=== PATIENT | male | born 1955 ===

== ENCOUNTER → 2023-08-16 09:36 | Outpatient (BNVA) | payer MEDICARE, SELFPAY | PROVIDERS: PCP Family Medicine; Referring Provider Family Medicine; Visit Provider Physician Assistant Surgical | DX: J98.6 Disorders of diaphragm (principal); J98.4 Other disorders of lung; J96.91 Respiratory failure, unspecified with hypoxia | CPT/HCPCS: 94618; 99205 ==

== ENCOUNTER 2023-08-23 05:02 | Outpatient (CLI) | payer MEDICARE, SELFPAY ==
[2023-08-23] MEDS: Levalbuterol HFA 15 GM INH 4 PUFF IH (09:32)
[2023-08-23] MEDS: Inhaler, Assist Device 1 EACH MC (09:32)
--- NOTE | 2023-08-23 12:51 | W.PFT ---
Date of service: 08/23/23 Time of Service: 08:03 Pulmonary Function Test Result Indications: Diaphragm paralysis Interpretation Spirometry: There is no airflow limitation. There is no bronchodilator response. Lung Volumes: There is moderate to severe restrictive lung disease. Diffusion Capacity: Unable to perform DLCO due to technical problems Airway Pressure: Normal airways resistance Impression There is moderate to severe restrictive lung disease. Patient unable to perform DLCO due to technical errors. Recommend retesting. Clinical Correlation therefore is recommended.
== END 2023-08-23 05:03 | disposition home or self-care (01) ==
LOC: RT 05:02
PROVIDERS: PCP Family Medicine; Visit Provider Physician Assistant Surgical
DX: J98.6 Disorders of diaphragm (principal); J98.4 Other disorders of lung
CPT/HCPCS: 94060; 94726

== ENCOUNTER 2023-08-25 02:21 | Outpatient (CLI) | payer MEDICARE, SELFPAY ==
--- NOTE | 2023-08-26 09:29 | W.PFT ---
Date of service: 08/25/23 Time of Service: 11:31 Pulmonary Function Test Result Indications: DLCO unable to be performed previously Interpretation Diffusion Capacity: The diffusion is reduced Impression Decreased diffusion. Clinical Correlation therefore is recommended.
== END 2023-08-25 02:22 | disposition home or self-care (01) ==
LOC: RT 02:21
PROVIDERS: PCP Family Medicine; Visit Provider Physician Assistant Surgical
DX: J98.6 Disorders of diaphragm (principal)
CPT/HCPCS: 94729

== ENCOUNTER 2023-09-26 11:12 | Outpatient (REF) | payer MEDICARE, SELFPAY ==
[2023-09-26 17:56] LABS: ALT 42 U/L (16-63); AST 28 U/L (15-37); Albumin 3.8 g/dL (3.4-5.0); Alkaline Phosphatase 124 U/L (46-116); Anion Gap 9.3 mmol/L (3-11); BUN 13 mg/dL (7-18); Bilirubin, Total 0.5 mg/dL (0.2-1.0); CO2 30.7 mmol/L (21.0-32.0); CREATININE 1.1 mg/dL (0.70-1.30); Calcium 9.5 mg/dL (8.5-10.1); Calculated LDL 119 mg/dL (<100); Chloride 102 mmol/L (98-107); Cholesterol 208 mg/dL (<200); Glucose 75 mg/dL (74-106); HDL Cholesterol 37 mg/dL (40-60); Potassium 4.7 mmol/L (3.5-5.1); Sodium 142 mmol/L (136-145); Total Protein 7.1 g/dL (6.4-8.2); Triglyceride 264 mg/dL (<150)
[2023-09-26 22:46] LABS: PSA, Screening 0.5 ng/mL (<=4.5)
== END 2023-09-26 11:13 | disposition home or self-care (01) ==
LOC: NCHCN 11:12
PROVIDERS: PCP Family Medicine; Visit Provider Family Medicine
DX: Z12.5 Encounter for screening for malignant neoplasm of prostate (principal); L28.2 Other prurigo; Z13.220 Encounter for screening for lipoid disorders
CPT/HCPCS: 80053; 80061; 84153

== ENCOUNTER → 2023-11-14 13:44 | Outpatient (BNVA) | payer MEDICARE, SELFPAY | PROVIDERS: PCP Family Medicine; Referring Provider Family Medicine; Visit Provider Student in an Organized Health Care Education/Training Program | DX: J96.91 Respiratory failure, unspecified with hypoxia (principal); J98.6 Disorders of diaphragm; J98.4 Other disorders of lung | CPT/HCPCS: 76604; 99214 ==

== ENCOUNTER → 2023-11-23 02:30 | Outpatient (CLI) | payer MEDICARE, SELFPAY ==
--- NOTE | 2023-11-23 07:45 | DI.RAD_ITS ---
Exam(s) XR CHEST 2V PA LATERAL EXAM: XR CHEST 2V PA LATERAL CLINICAL HISTORY: prior diaphragm paralysis,RESTRICTIVE LUNG DISEASE,J98.4,J98.6 TECHNIQUE: 2D digital imaging was performed. Two views. COMPARISON: No exams were available for comparison FINDINGS: The exam is limited by poor pulmonary inflation HEART: Normal size. Aorta: Not dilated. PULMONARY VASCULATURE: Normal. LUNGS: Bilateral atelectasis versus scarring above the diaphragm. No area consolidation. PLEURAL SPACE: No pleural effusion or pneumothorax. BONE:Unremarkable for age. Soft tissues: Unremarkable. IMPRESSION: Low lung volumes. Basilar atelectasis. DATA REPOSITORY: RADIATION DOSE DELIVERED:
== END ==
PROVIDERS: PCP Family Medicine; Visit Provider Student in an Organized Health Care Education/Training Program
DX: J98.4 Other disorders of lung (principal)
CPT/HCPCS: 71046

== ENCOUNTER → 2023-12-13 00:23 | Outpatient (CLI) | payer MEDICARE, SELFPAY ==
--- NOTE | 2023-12-13 07:00 | DI.US_ITS ---
APPROVED REPORT EXAM: Comprehensive 2D, Doppler, and color-flow Echocardiogram Patient Location: Out-Patient [employer] Operator: Salina Hargrove RT (R) (CT) RDCS Rhythm: NSR Indications: Dyspnea, decreased DLCO, question pulmonary hypertension. Other Information Study Quality: Adequate Conclusion Normal left ventricular wall thickness and chamber size. EF is 65%. Wall motion is normal Normal right ventricular size and function Both atria are normal in size Aortic valve is trileaflet and very mildly sclerotic. There is no hemodynamically significant aortic stenosis. Mean gradient is 8 mmHg. There is no aortic regurgitation Right ventricular systolic pressure could not be estimated due to inadequate tricuspid regurgitation jet Wall motion Left Ventricle The left ventricle is normal size. The left ventricular systolic function is normal. The left ventric ular ejection fraction is within the normal range. Mild concentric left ventricular hypertrophy. Ther e is normal LV segmental wall motion. The left ventricular diastolic function is normal. There is no ventricular septal defect visualized. LVEF is 65%. Right Ventricle The right ventricle is normal size. The right ventricular systolic function is normal. There is faye l right ventricular wall thickness. Moderator band is seen in the right ventricle. Atria The left atrium size is normal. The right atrium size is normal. The interatrial septum is intact wit h no evidence for an atrial septal defect. Aortic Valve Aortic valve is trileaflet. Aortic valve leaflets are mildly thickened. Mean gradient is 8 mmHg No ao rtic regurgitation is present. Mitral Valve The mitral valve leaflets are normal. There is annular calcification. No evidence of mitral valve geraldine nosis. There is no mitral valve regurgitation noted. Tricuspid Valve The tricuspid valve is normal in structure. There is no tricuspid valve stenosis. Trace tricuspid reg urgitation. Unable to assess PA pressure due to inadequate TR jet. Pulmonic Valve The pulmonary valve is normal in structure. There is no pulmonic valvular stenosis. Trace pulmonic re gurgitation. Great Vessels The aortic root is normal in size. The pulmonary artery is normal. Ascending aorta is normal in calib er. Aortic arch is mildly dilated. The IVC is normal in size. The IVC collapses <50% with inspiration . Pericardium There is no pericardial effusion. There is no pleural effusion. 2D Dimensions IVSD d PLAX 1.23 cm M: 0.6-1.2 Ao Root d 3.08 cm M: 3.1 - 3.7 LVPW d PLAX 0.91 cm M: 0.6 - 1.2 Ao Asc Diam d 3.33 cm M: 2.6 - 3.4 LVID d PLAX 4.72 cm M: 4.2 - 5.8 Prox Ao Arch 3.4 cm LVDs 2.20 cm M: 2.5 - 4.0 IVC Diam exp d SLAX 1.6 cm LV EF Teichholz 84.3 % FS 53.34 % LV EDV (Teich) 103.6 mL LV ESV (Teich) 16.3 mL M-Mode TAPSE 2.12 cm (M/F) >1.7 Auto EF LV EDV A4C 92.3 mL LV EDV A2C 80.9 mL LV EDV BP 87.8 mL LV ESV A4C 41.2 mL LV ESV A2C 28.5 mL LV ESV BP 34.9 mL LVEF(%) A4C 55.3 % LVEF(%) A2C 64.8 % LVEF(%) BP 60.2 % LV SV A4C 51.1 ml LV SV A2C 52.4 ml LV SV BP 52.9 ml LV CO A4C 4.0 L/min LV CO A2C 4.3 L/min LV CO BP 4.1 L/min HR A4C 78.09 BPM HR A2C 82.01 BPM LV EDV Index (BP) LV Strain Long Pk Overal Avg (s) 19.33 RV Strain Global Peak Long. Strain A4C 21.98 Global Peak Long. Strain A4C FW 26.69 LA Volume LA Length A4C 4.4 cm LA Length A2C 4.7 cm LA Area A4C s 10.77 cm2 LA Area A2C s 12.82 cm2 LA Vol A4C A-L 22.61 mL LA Vol A2C A-L 29.91 mL LA Vol Biplane A-L 26.9 mL LA Vol/BSA A4C A-L LA Vol/BSA A2C A-L LA Vol/BSA BP A-L 12.5 mL/m2 LA Vol A4C MOD 21.2 mL LA Vol A2C MOD 28.7 mL LA Vol BP MOD 25.5 mL LV Diastology MV E' medial 0.081 (>0.07 m/s) MV E Vmax 0.90 (0.4-1.3 m/s) MV E/E' MED 11.13 (<14) MV A Vmax 0.95 (0.4-1.3 m/s) MV E' lateral 0.072 (>0.1 m/s) E/A Ratio 0.9 MV E/E' LAT 12.43 (<14) MV E' Average 0.077 m/s MV E/E'(average) 11.75 Aortic Valve AoV Vmax 2.09 m/s LVOT Vmax 1.44 m/s AoV Peak Grad 17.5 mmHg LVOT Peak Grad 8.3 mmHg AoV Area (Vmax) 2.66 cm2 LVOT VTI 0.302 m AoV VTI 0.354 m LVOT Mean Grad 5.3 mmHg AoV Mean Jatinder. 1.37 m/s LVOT SV 116.62 mL AoV Mean Grad 8.4 mmHg LVOT Diam s 2.20 cm AoV Area (VTI) 3.29 cm2 MARBIN (Planimetry) 2.6 cm2 Velocity Ratio 0.69 Mitral Valve MV DT 152 (160-240 msec) MV Vmax TIPS 1.09 m/s MV Mean Grad 1.7 (<2mmHg) MV VTI 0.244 m Pulm Vein s 0.65 m/s Pulm Vein d 0.48 m/s Pulm Vein a 0.31 m/s Pulmonary Valve RVOT Vmax 0.88 m/s RVOT Peak Gr. 3.1 mmHg RVOT VTI 0.146 m RVOT Mean Gr. 1.4 mmHg Tricuspid Valve RA Pressure 8.00 mmHg TV S' 0.14 m/s
== END ==
PROVIDERS: PCP Family Medicine; Visit Provider Student in an Organized Health Care Education/Training Program
DX: R06.00 Dyspnea, unspecified (principal); I37.1 Nonrheumatic pulmonary valve insufficiency
CPT/HCPCS: 93306

== ENCOUNTER → 2023-12-21 02:16 | Outpatient (CLI) | payer MEDICARE, SELFPAY ==
--- NOTE | 2023-12-21 07:45 | DI.CT_ITS ---
Exam(s) CT CHEST WO EXAM: CT CHEST WO CLINICAL HISTORY: assess possible fibrosis CXR, abnl cxr, pulmonary fibrosis, R93.89, J84.10. TECHNIQUE: Imaging protocol: Axial computed tomography images were obtained and coronal and sagittal reformatted images were created and reviewed. The patient was scanned right side down as the patient was unable to lie flat. COMPARISON: CR XR CHEST 2V PA LATERAL from 11/23/2023 FINDINGS: There is poor inspiration. Tracheobronchial tree: Patent where visualized. Pulmonary parenchyma: There are linear infiltrate seen in the lingula and the left lower lobe which m ay represent scarring. These correspond to the finding seen on the x-ray examination. Small areas o f consolidation are seen in the lung bases bilaterally. Mild bronchiectatic changes are seen particu larly in the right lung base. No architectural distortion. Mediastinum and Maryana: No dominant adenopathy or fluid collection. The esophagus is unremarkable. Thyroid gland: Unremarkable. Pleura: No effusion or pneumothorax. Heart: The heart is not dilated. No coronary artery calcifications are seen. No pericardial effusion. Mitral calcification is present. Aorta: Thoracic aorta non-dilated. Atherosclerotic calcification is present. Upper abdomen: Unremarkable. Lymph nodes: No significant axillary adenopathy. Soft tissues: Unremarkable. Bones:Within normal limits for the patient's age. IMPRESSION: 1. Examination limited by poor inspiration and patient positioning. 2. Areas of consolidation in the lung bases bilaterally. This may be chronic as bronchiectatic barron es are associated with these findings. 3. Linear scarring or atelectasis in the lingula and left lower lobe. These correspond to the findin g seen on the chest x-ray. 4. The lungs are otherwise clear without evidence of interstitial disease. RADIATION DOSE DELIVERED: 632.17mGy.cm Total DLP 632.17mGy.cm Total DLP DATA REPOSITORY: All CT scans at this facility are submitted to the National Radiology Data Registry (NRDR) Dose Index Registry (DIR) with the [employer] [place] [employer] ([employer]). RADIATION OPTIMIZATION: All CT scans at this facility use at least one of these dose optimization te chniques: automated exposure control; mA and/or kV adjustment per patient size (includes targeted exa ms where dose is matched to clinical indication); or iterative reconstruction.
== END ==
PROVIDERS: PCP Family Medicine; Visit Provider Student in an Organized Health Care Education/Training Program
DX: R93.89 Abnormal findings on diagnostic imaging of other specified body structures (principal)
CPT/HCPCS: 71250

== ENCOUNTER → 2023-12-29 11:03 | Outpatient (BNVA) | payer MEDICARE, SELFPAY | PROVIDERS: PCP Family Medicine; Referring Provider Family Medicine; Visit Provider Physical Therapy Assistant | DX: Z12.11 Encounter for screening for malignant neoplasm of colon (principal) ==

== ENCOUNTER → 2024-02-15 12:53 | Outpatient (BNVA) | payer MEDICARE, SELFPAY | PROVIDERS: PCP Family Medicine; Referring Provider Family Medicine; Visit Provider Physician Assistant Surgical | DX: J96.91 Respiratory failure, unspecified with hypoxia (principal); J98.4 Other disorders of lung; J98.6 Disorders of diaphragm | CPT/HCPCS: 99214 ==

== ENCOUNTER → 2024-08-14 12:26 | Outpatient (BNVA) | payer MEDICARE, SELFPAY | PROVIDERS: PCP Family Medicine; Referring Provider Family Medicine; Visit Provider Physician Assistant Surgical | DX: J96.91 Respiratory failure, unspecified with hypoxia (principal); J98.6 Disorders of diaphragm; J98.4 Other disorders of lung | CPT/HCPCS: 99214 ==

== ENCOUNTER 2024-09-28 08:29 | Outpatient (CLI) | payer MEDICARE, SELFPAY ==
[2024-09-28 13:21] LABS: ALT 48 U/L (16-63); AST 32 U/L (15-37); Albumin 3.8 g/dL (3.4-5.0); Alkaline Phosphatase 130 U/L (46-116); Anion Gap 4.6 mmol/L (3-11); BUN 20 mg/dL (7-18); Bilirubin, Total 0.6 mg/dL (0.2-1.0); CO2 35.4 mmol/L (21.0-32.0); CREATININE 1.1 mg/dL (0.70-1.30); Calcium 9.3 mg/dL (8.5-10.1); Chloride 102 mmol/L (98-107); Cholesterol 224 mg/dL (<200); Estimated GFR 74.04 (mL/min/1.73m2); Glucose 94 mg/dL (74-106); HDL Cholesterol 38 mg/dL (>or=40); Potassium 4.3 mmol/L (3.5-5.1); Sodium 142 mmol/L (136-145); Total Protein 7.5 g/dL (6.4-8.2); Triglyceride 486 mg/dL (<150)
[2024-09-28 13:38] LABS: LDL CHOLESTEROL 131 mg/dL (<100)
[2024-09-28 23:36] LABS: Hepatitis C Ab w Rflx HCV PCR Negative (Negative)
== END 2024-09-28 08:30 | disposition home or self-care (01) ==
PROVIDERS: PCP Family Medicine; Visit Provider Family Medicine
DX: Z13.220 Encounter for screening for lipoid disorders (principal)
CPT/HCPCS: 36415; 80053; 80061; 83721; 86803

== ENCOUNTER 2024-10-03 02:00 | Outpatient (CLI) | payer MEDICARE, SELFPAY ==
--- NOTE | 2024-10-03 | DI.US_ITS ---
Exam(s) US AAA SCREENING EXAM: US AAA SCREENING CLINICAL HISTORY: EX SMOKER, [id number], PERSONAL HX NICOTINE DEPENDENCE COMPARISON: No exams were available for comparison FINDINGS: Abdominal Aorta: Proximal: 2.8 cm Mid: 2.5 cm Distal: 2.2 cm Iliacs: Right: 1.5 cm Left: 1.6 cm IMPRESSION: No evidence of abdominal aortic aneurysm. DATA REPOSITORY:
== END 2024-10-03 02:20 ==
LOC: DI 02:01
PROVIDERS: PCP Family Medicine; Visit Provider Family Medicine
DX: Z87.891 Personal history of nicotine dependence (principal); Z13.6 Encounter for screening for cardiovascular disorders
CPT/HCPCS: 76706

== ENCOUNTER → 2025-02-11 12:11 | Outpatient (BNVA) | payer MEDICARE, SELFPAY | PROVIDERS: PCP Family Medicine; Referring Provider Family Medicine; Visit Provider Physician Assistant Surgical | DX: J96.91 Respiratory failure, unspecified with hypoxia (principal); J98.6 Disorders of diaphragm; J98.4 Other disorders of lung | CPT/HCPCS: 99214; 94618 ==

== ENCOUNTER 2025-02-19 03:46 | Outpatient (CLI) | payer MEDICARE, SELFPAY ==
[2025-02-19 08:00] LABS: ALT 40 U/L (16-63); AST 31 U/L (15-37); Albumin 3.9 g/dL (3.4-5.0); Alkaline Phosphatase 129 U/L (46-116); Anion Gap 6.4 mmol/L (3-11); BUN 17 mg/dL (7-18); Bilirubin, Total 0.5 mg/dL (0.2-1.0); CO2 32.6 mmol/L (21.0-32.0); Calcium 9.3 mg/dL (8.5-10.1); Calculated LDL 78 mg/dL (<100); Chloride 102 mmol/L (98-107); Cholesterol 146 mg/dL (<200); Estimated GFR 93.61 (mL/min/1.73m2); Glucose 99 mg/dL (74-106); HDL Cholesterol 42 mg/dL (>or=40); Potassium 4.2 mmol/L (3.5-5.1); Sodium 141 mmol/L (136-145); Total Protein 7.6 g/dL (6.4-8.2); Triglyceride 131 mg/dL (<150)
[2025-02-19 19:40] LABS: PSA, Screening 0.5 ng/mL (<=4.5)
== END 2025-02-19 03:47 | disposition home or self-care (01) ==
LOC: LBO 03:47
PROVIDERS: PCP Family Medicine; Visit Provider Family Medicine
DX: Z12.5 Encounter for screening for malignant neoplasm of prostate (principal); E78.5 Hyperlipidemia, unspecified; R01.1 Cardiac murmur, unspecified
CPT/HCPCS: 36415; 80053; 80061; 84153

== ENCOUNTER 2025-02-26 13:00 | Outpatient (REF) | payer MEDICARE, SELFPAY ==
[2025-02-26 16:35] LABS: GGT 50 U/L (15-85)
== END 2025-02-26 13:01 | disposition home or self-care (01) ==
LOC: NCHCN 13:00
PROVIDERS: PCP Family Medicine; Visit Provider Family Medicine
DX: R74.8 Abnormal levels of other serum enzymes (principal)
CPT/HCPCS: 82977